=== PATIENT | female | born 1945 | race Caucasian/White ===

== ENCOUNTER 2020-08-21 10:05 | Emergency (ER) | payer MEDICARE, BC ==
[2020-08-21] MEDS ORDERED: Diltiazem 120 MG Cap.CD PO ONE (12:28)
[2020-08-21] MEDS ORDERED: Sodium Chloride 0.9% 1,000 ML IV SCH (12:45)
--- NOTE | 2020-08-21 14:15 | EDM.PDOC ---
ED HPI GENERAL MEDICAL PROBLEM - General Chief Complaint: Cardiovascular Problem Stated Complaint: SENT BY [facility] FOR ABNORMAL EKG Time Seen by Provider: 08/21/20 10:48 Source of Information: Reports: Patient, RN Notes Reviewed - History of Present Illness INITIAL COMMENTS - FREE TEXT/NARRATIVE: 74 yr old female sent here from [place] walk in clinic with new onset a Fib. She fell 2 days ago with discomfort L lower ant chest S/P fall. X rays done at clinic are reported by patient 2 show 2 rib fractures, she believes on the L lower ant. chest. she was found to be in a fib at the clinic with rate 100 to 140 range. Sent here for further eval and treatment. No hx of prior a fib., or known CAD. No chest pain or other unusual sx. has not been aware of unusual palpitations so she has no idea when this started. Chest Pain Score (Numeric/FACES): 5 - Related Data Allergies Allergy/AdvReac Type Severity Reaction Status Date / Time erythromycin base Allergy Other Verified 08/21/20 10:28 Penicillins Allergy Other Verified 08/21/20 10:28 propoxyphene [From Darvon] Allergy Other Verified 08/21/20 10:28 Home Meds: Home Meds Aspirin [Ecotrin EC] 81 mg PO DAILY 05/12/18 [History] Citalopram [Citalopram HBr] 20 mg PO DAILY 05/12/18 [History] Fish Oil/Castine-3 Fatty Acids [Fish Oil 1,000 MG] 1,000 mg PO DAILY 05/12/18 [History] Lisinopril 5 mg PO DAILY 05/12/18 [History] Loratadine 10 mg PO DAILY 05/12/18 [History] Simvastatin 20 mg PO DAILY 05/12/18 [History] glipiZIDE [Glucotrol] 5 mg PO DAILY 05/12/18 [History] hydroCHLOROthiazide [Hydrochlorothiazide] 12.5 mg PO DAILY 05/12/18 [History] metFORMIN HCl [Metformin HCl] 1,000 mg PO DAILY 05/12/18 [History] Diltiazem [Cardizem CD] 120 mg PO DAILY #30 cap.er 08/21/20 [Rx] Past Medical History Other Cardiovascular History: denies cardiac hx Respiratory History: Reports: Sleep Apnea Gastrointestinal History: Reports: Other (See Below) Other Gastrointestinal History: Ventral Hernia Psychiatric History: Reports: Depression Endocrine/Metabolic History: Reports: Diabetes, Type II Other Dermatologic History: Excision of lipoma to the abdomen - Past Surgical History GI Surgical History: Reports: None Musculoskeletal Surgical History: Reports: Arthroscopic Knee Other Musculoskeletal Surgeries/Procedures:: Right Knee Surgery Social & Family History - Tobacco Use Tobacco Use Status *Q: Never Tobacco User - Caffeine Use Caffeine Use: Reports: None ED ROS GENERAL - Review of Systems Review Of Systems: See Below Constitutional: Denies: Fever, Chills HEENT: Reports: No Symptoms Respiratory: Denies: Shortness of Breath, Pleuritic Chest Pain Cardiovascular: Reports: Chest Pain (mild discomofort area of injury). Denies: Dyspnea on Exertion, Lightheadedness, Palpitations GI/Abdominal: Denies: Abdominal Pain, Nausea, Vomiting Musculoskeletal: Reports: No Symptoms. Denies: Shoulder Pain, Arm Pain, Back Pain Skin: Reports: No Symptoms Neurological: Denies: Dizziness, Numbness, Tingling, Trouble Speaking, Difficulty Walking, Weakness ED EXAM, GENERAL - Physical Exam Exam: See Below General Appearance: Alert, No Apparent Distress Head: Atraumatic Neck: Supple Respiratory/Chest: No Respiratory Distress, Lungs Clear, Normal Breath Sounds Cardiovascular: Tachycardia, Irregularly Irregular Back Exam: Normal Inspection Extremities: Normal Inspection. No: Pedal Edema, Leg Pain, Increased Warmth, Redness Neurological: Alert, Oriented, No Motor/Sensory Deficits Skin Exam: Warm, Dry, Normal Color #1 Interpretation EKG Date: 08/21/20 Rhythm: A-Fib Rate (Beats/Min): 121 [place]: Normal P-Wave: Absent QRS: Normal ST-T: Normal QT: Normal Course - Vital Signs Last Recorded V/S: Last Vital Signs Temp 96.9 F 08/21/20 10:20 Pulse 96 08/21/20 12:44 Resp 18 08/21/20 10:20 BP 135/97 H 08/21/20 12:44 Pulse Ox 97 08/21/20 10:20 - Orders/Labs/Meds Labs: Laboratory Tests 08/21/20 08/21/20 Range/Units 10:32 10:32 WBC 6.85 (3.98-10.04) K/mm3 RBC 5.10 (3.98-5.22) M/mm3 Hgb 14.8 (11.2-15.7) gm/dl Hct 45.8 H (34.1-44.9) % MCV 89.8 (79.4-94.8) fl MCH 29.0 (25.6-32.2) pg MCHC 32.3 (32.2-35.5) g/dl RDW Std Deviation 45.9 (36.4-46.3) fL Plt Count 185 (182-369) K/mm3 MPV 9.3 L (9.4-12.3) fl Neut % (Auto) 66.5 (34.0-71.1) % Lymph % (Auto) 20.4 (19.3-51.7) % Rush % (Auto) 12.3 (4.7-12.5) % Eos % (Auto) 0.4 L (0.7-5.8) Baso % (Auto) 0.1 (0.1-1.2) % Neut # (Auto) 4.55 (1.56-6.13) K/mm3 Lymph # (Auto) 1.40 (1.18-3.74) K/mm3 Rush # (Auto) 0.84 H (0.24-0.36) K/mm3 Eos # (Auto) 0.03 L (0.04-0.36) K/mm3 Baso # (Auto) 0.01 (0.01-0.08) K/mm3 Sodium 138 (136-145) mEq/L Potassium 4.1 (3.5-5.1) mEq/L Chloride 103 (98-107) mEq/L Carbon Dioxide 20 L (21-32) mEq/L Anion Gap 19.1 H (5-15) BUN 25 H (7-18) mg/dL Creatinine 1.1 H (0.55-1.02) mg/dL Est Cr Clr Drug Dosing 44.29 mL/min Estimated GFR (MDRD) 49 (>60) mL/min BUN/Creatinine Ratio 22.7 H (14-18) Glucose 226 H (83-115) mg/dL Calcium 9.4 (8.5-10.1) mg/dL Total Bilirubin 2.5 H (0.2-1.0) mg/dL AST 16 (15-37) U/L ALT 22 (14-59) U/L Alkaline Phosphatase 83 (46-116) U/L Troponin I < 0.017 (0.00-0.056) ng/mL Total Protein 8.0 (6.4-8.2) g/dl Albumin 4.0 (3.4-5.0) g/dl Globulin 4.0 gm/dL Albumin/Globulin Ratio 1.0 (1-2) Meds: Medications Discontinued Medications Generic Name Dose Route Start Last Admin Trade Name Marilyn PRN Reason Stop Dose Admin Diltiazem HCl 120 mg 08/21/20 12:28 08/21/20 12:44 Cardizem Cd PO 08/21/20 12:29 120 mg ONETIME ONE Administration Sodium Chloride 1,000 mls @ 999 mls/hr 08/21/20 12:45 08/21/20 12:44 Normal Saline IV 999 mls/hr ONETIME ZOEY Administration - Re-Assessments/Exams Free Text/Narrative Re-Assessment/Exam: 08/22/20 15:18 Rate running in the mid 90's to 130' at time of exam, did give cardizem 120 mg CD. With that her rate stabilized mostly in the 90's. Labs showed relative dehydration so did give some IV fluid. She did well with that, remained asymptomatic while in the ED. Her [place] provider did not call but told patient he did not want to anticoagulate today due to recent fall with bruising ant. chest from fall 2 days ago so will hold off on that for now. Discharge instr. as documented. Departure - Departure Time of Disposition: 14:12 Disposition: Home, Self-Care 01 Condition: Fair Clinical Impression: Atrial fibrillation with RVR Prescriptions: Diltiazem [Cardizem CD] 120 mg PO DAILY #30 cap.er Instructions: Atrial Fibrillation, [id number] Referrals: Saida Jenkins NP [Primary Care Provider] - Forms: ED Department Discharge Additional Instructions: Cardizam CD 120 mg daily until otherwise directed. Prescription has been sent to your [facility]. Tyelenol 2 to 3 times daily if needed for pain. Check you BP and heart rate 2 to 3 times daily and keep a log for your medical provider. See your medical provider in about 4 to 6 days, call for appointment today. Return to ED as needed if symptoms worsening in any way. Sepsis Event Note (ED) - Evaluation Sepsis Screening Result: No Definite Risk
== END 2020-08-21 14:30 | disposition home or self-care (01) ==
LOC: JD.ED 10:05
DX: I48.91 Unspecified atrial fibrillation (principal); E11.9 Type 2 diabetes mellitus without complications; Z88.1 Allergy status to other antibiotic agents; Z88.0 Allergy status to penicillin; Z88.8 Allergy status to other drugs, medicaments and biological substances; Z79.82 Long term (current) use of aspirin; Z79.899 Other long term (current) drug therapy; Z79.84 Long term (current) use of oral hypoglycemic drugs
CPT/HCPCS: 36415; 80053; 84484; 85025; 93005; 99285; A9270; J7030; 93010; 99284

== ENCOUNTER 2025-03-25 09:23 | Emergency (ER) | payer MEDICARE ==
[2025-03-25] MEDS ORDERED: Sodium Chloride 0.9% 10 ML Syringe FLUSH PRN (09:44)
[2025-03-25 09:56] LABS: BASOPHILS ABSOLUTE AUTO 0.1 K/mm3 (0.0-0.2); BASOPHILS PERCENT AUTO 0.6 % (0.0-1.0); EOSINOPHILS ABSOLUTE AUTO 0.1 K/mm3 (0.0-0.4); EOSINOPHILS PERCENT AUTO 1.0 % (0.0-6.0); IMMATURE GRAN ABSOLUTE AUTO 0.03 K/mm3 (0.00-0.05); IMMATURE GRAN PERCENT AUTO 0.4 % (0.0-0.4); LYMPHOCYTES ABSOLUTE AUTO 2.4 K/mm3 (1.0-4.8); LYMPHOCYTES PERCENT AUTO 31.6 % (24.0-44.0); MEAN PLATELET VOLUME 9.2 fl (9.4-12.3); MONOCYTES ABSOLUTE AUTO 0.6 K/mm3 (0.0-0.8); MONOCYTES PERCENT AUTO 7.8 % (0.0-8.0); NEUTROPHILS ABSOLUTE AUTO 4.5 K/mm3 (1.8-7.7); NEUTROPHILS PERCENT AUTO 58.6 % (41.0-71.0); NRBC ABSOLUTE 0.00 (0.00-0.02); NRBC PERCENT 0.0 % (0.0-0.2); RED BLOOD CELL COUNT 5.08 M/mm3 (4.10-5.30); WHITE BLOOD CELL COUNT,WBC 7.73 K/mm3 (3.9-11.3)
[2025-03-25 09:58] LABS: PLATELET COUNT,PLT 262 K/mm3 (150-400)
[2025-03-25] MEDS: Diltiazem 25 MG/5 ML SDV IVPUSH ONE (10:15)
[2025-03-25 10:32] LABS: A/G RATIO 1.1 (1-2); ALANINE AMINOTRANSFERASE,ALT 42.0 U/L (14-59); ASPARTATE AMNIOTRANSFERASE,AST 33.0 U/L (15-37); BILIRUBIN TOTAL 2.8 mg/dL (0.2-1.0); BLOOD UREA NITROGEN,BUN 18.0 mg/dL (7-18); CARBON DIOXIDE,CO2 21.0 mEq/L (21-32); CHLORIDE,CL 103.0 mEq/L (98-107); CREATININE 1.5 mg/dL (0.55-1.02); EST CRCL DRUG DOSING (CG) 30.06 mL/min; ESTIMATED GFR 35.0 mL/min (>60); GLUCOSE RANDOM 296.0 mg/dL (70-99); POTASSIUM,K 5.2 mEq/L (3.5-5.1); PROTEIN TOTAL,TP 7.6 g/dl (6.4-8.2); SODIUM,NA 138.0 mEq/L (136-145); TROPONIN I HIGH SENSITIVITY 10.0 pg/mL (<=51); TSH 3.51 uIU/mL (0.358-3.74)
== END 2025-03-25 12:35 | disposition home or self-care (01) ==
LOC: JD.ED 09:23
DX: I48.91 Unspecified atrial fibrillation (principal); E11.9 Type 2 diabetes mellitus without complications; Z88.0 Allergy status to penicillin; Z88.8 Allergy status to other drugs, medicaments and biological substances; Z79.82 Long term (current) use of aspirin; Z79.899 Other long term (current) drug therapy
CPT/HCPCS: 36415; 71045; 80053; 83735; 84443; 84484; 85025; 93005; 96361; 96365; 99285; J1163; J3490; J7030